=== PATIENT | female | born 1955 | race American Indian/Alaskan Native ===

== ENCOUNTER 2017-04-15 13:41 | Outpatient (CLI) | payer BC ==
--- NOTE | 2017-04-15 14:56 | XRay Report ---
LEFT SHOULDER RADIOGRAPHS INDICATION: Left shoulder pain. COMPARISON: None similar. FINDINGS: Frontal and Y views of the left shoulder, 3 projections demonstrate normal humeral head contour, well positioned against the glenoid. Normal acromioclavicular joint. Preserved scapular contour. Normal visualized soft tissues, left ribs and lung. CONCLUSION: No acute left shoulder radiographic abnormality, as described. Thank you for the opportunity to participate in this patient's care.
== END 2017-04-15 13:42 | disposition home or self-care (01) ==
LOC: XRAY 13:41
PROVIDERS: ATTEND Internal Medicine
DX: M25.512 Pain in left shoulder (principal); I10 Essential (primary) hypertension; Z87.891 Personal history of nicotine dependence

== ENCOUNTER 2017-09-25 13:34 | Emergency (ER) | payer BC ==
[2017-09-25 14:04] VITALS: BP 169/78
[2017-09-25] MEDS ORDERED: MOTRIN PO ONE (14:36)
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
== END 2017-09-25 15:24 | disposition home or self-care (01) ==
LOC: ED 13:34
DX: S46.911A Strain of unspecified muscle, fascia and tendon at shoulder and upper arm level, right arm, initial encounter (principal); I10 Essential (primary) hypertension; Z87.891 Personal history of nicotine dependence; Z90.710 Acquired absence of both cervix and uterus; Z88.5 Allergy status to narcotic agent; Z91.09 Other allergy status, other than to drugs and biological substances; W23.0XXA Caught, crushed, jammed, or pinched between moving objects, initial encounter; Y93.89 Activity, other specified; Y99.8 Other external cause status; Y92.89 Other specified places as the place of occurrence of the external cause
CPT/HCPCS: 99282

== ENCOUNTER 2017-11-07 07:54 | Outpatient (CLI) | payer BC ==
--- NOTE | 2017-11-08 07:59 | Magnetic Resonance Report ---
MR UPPER EXTREMITY RIGHT WITHOUT CONTRAST HISTORY: Right shoulder pain. TECHNIQUE: Multisequence, multiplanar MR without contrast. COMPARISON: No relevant comparison at this facility. FINDINGS: The distal supraspinatus and infraspinatus tendons are thickened with increased intrinsic signal. A greater than 50% thickness articular surface tear is suspected in the distal supraspinatus tendon at the level of the acromion. There is likely a pinhole full-thickness component to this tear as well. Partial tear along the bursal surface of the distal infraspinatus tendon at its attachment site on the proximal humerus is suspected and estimated at 50% thickness. The subscapularis tendon, teres minor tendon and long head of the biceps tendon are within normal limits. No gross labral defect although arthrogram was not performed. Minimal osteoarthritic changes are identified. A 5 mm degenerative subchondral cyst is noted in the lateral humeral head. No evidence for fracture, dislocation, or ligamentous injury or bone lesion. Small joint effusion and small fluid in the subacromial/subdeltoid bursa are noted. IMPRESSION: Abnormal distal supraspinatus and infraspinatus tendons as outlined above. Small joint effusion and bursal fluid. Minor osteoarthritic changes which appear appropriate for this persons age.
== END 2017-11-07 07:55 | disposition home or self-care (01) ==
LOC: MRI 07:54
PROVIDERS: ATTEND Orthopaedic Surgery
DX: M19.011 Primary osteoarthritis, right shoulder (principal); M25.811 Other specified joint disorders, right shoulder

== ENCOUNTER 2017-11-27 08:24 | Outpatient (CLI) | payer BC ==
--- NOTE | 2017-11-28 08:08 | Magnetic Resonance Report ---
MRI LEFT SHOULDER WITHOUT CONTRAST: 11/27/17 CLINICAL: Left shoulder pain. TECHNIQUE: Coronal T1, coronal T2, coronal proton density fat saturation, sagittal proton density fat saturation and axial gradient echo T* sequences on a 1.5 [employer] magnet. FINDINGS: Type I acromion. Moderate acromioclavicular joint arthritis with subacromial impingement of the supraspinatus tendon. High-grade partial-thickness tear of the distal supraspinatus tendon with thinning of the undersurface as well as the bursal surface. Subacromial and subdeltoid fluid. Small joint effusion. The rest of the rotator cuff is intact. Fluid in the biceps tendon sheath with an empty upper bicipital groove. The glenoid labrum appears intact. No bone contusion or fracture. No muscle atrophy or abnormal muscle signal. IMPRESSION: 1. High-grade partial-thickness tears of the distal supraspinatus tendon. 2. Torn biceps tendon with retraction of the tendon and fluid in the biceps tendon sheath. 3. Acromioclavicular joint arthritis with subacromial impingement.
--- NOTE | 2017-11-28 09:23 | Magnetic Resonance Report ---
MR LOWER EXTREMITY JOINT RIGHT WITHOUT CONTRAST HISTORY: Right knee pain. TECHNIQUE: Multisequence, multiplanar MRI with and without fat suppression. No IV gadolinium. COMPARISON: None at this facility. FINDINGS: There is a 2.3 x 1.8 x 2.0 cm bone lesion in the distal femoral metaphysis. This has a well defined margin and no surrounding edema. This lesion appears to follow cartilage signal on all sequences. This is highly consistent with an incidental enchondroma. The remaining bone marrow signal is within normal limits. No evidence for suspicious bone lesion, fracture or bone marrow edema. There is mild thickening and increased signal in the proximal portions of the medial collateral ligament. There is a small amount of edema seen on both sides of the ligament. This suggests a grade 1 strain. No detachment or large full thickness defect is identified. The ACL, PCL, LCL complex and extensor complex are intact. Mild myxoid degeneration of both menisci is identified. The lateral meniscus appears intact. There is suggestion of a horizontal cleavage tear in the body of the medial meniscus. The coronal proton density fat sat images 11 and 12 suggests there may be a medial flipped meniscus near the body of the medial meniscus as well. No findings to suggest meniscocapsular separation. There is moderate diffuse cartilage thinning throughout the knee. Mild marginal spurring in the medial compartment is noted. Tiny 3 mm subchondral cyst is noted in the medial tibial plateau. No evidence for osteochondral defect or large full thickness cartilage defect. There is a moderate joint effusion which extends to the suprapatellar bursa. No popliteal cyst. IMPRESSION: Mild to moderate osteoarthritis. Medial meniscal tear as outlined above. There may be a medial flipped meniscus. Grade 1 MCL strain. Joint effusion. Incidental enchondroma in the distal femoral metaphysis.
== END 2017-11-27 08:25 | disposition home or self-care (01) ==
LOC: MRI 08:24
PROVIDERS: ATTEND Orthopaedic Surgery
DX: D16.21 Benign neoplasm of long bones of right lower limb (principal); S83.411A Sprain of medial collateral ligament of right knee, initial encounter; S83.241A Other tear of medial meniscus, current injury, right knee, initial encounter; S46.212A Strain of muscle, fascia and tendon of other parts of biceps, left arm, initial encounter; M75.102 Unspecified rotator cuff tear or rupture of left shoulder, not specified as traumatic; M19.012 Primary osteoarthritis, left shoulder; M17.11 Unilateral primary osteoarthritis, right knee; M25.812 Other specified joint disorders, left shoulder; M25.861 Other specified joint disorders, right knee; X58.XXXA Exposure to other specified factors, initial encounter; Y93.89 Activity, other specified; Y92.89 Other specified places as the place of occurrence of the external cause; Y99.8 Other external cause status
CPT/HCPCS: 73721

== ENCOUNTER 2017-12-19 19:59 | Emergency (ER) | payer BC ==
[2017-12-19 20:23] VITALS: BP 163/68
--- NOTE | 2017-12-19 20:55 | Emergency Department Report ---
ED Eye Problem HPI - General Chief complaint: Eye Problems Stated complaint: LEFT EYE LIGHT FLASH Time Seen by Provider: 12/19/17 20:31 Source: patient Mode of arrival: Ambulatory Limitations: No Limitations - History of Present Illness Initial comments: Mrs. Slade is a 62 yo female with hx of HTN who presents with visual disturbance. She woke up this morning with mild posterior headache which spontaneously resolved. Subsequently, she developed constant flash of light in the left superior temporal region of her left eye. No involvement of right eye. For the last 3-4 hours, she has noted dark floaters from the lateral/ temporal aspect of left eye. Normal eye exam several months prior. No hx of DM. chief complaint: vision change -: Gradual Onset Description: gradual Location: left eye Place: home, work If Injury: none Eye Symptoms: decreased vision Severity: moderate Consistency: constant Associated Symptoms: headache - Related Data Previous Rx's Medication Instructions Recorded Last Taken Type hydrALAZINE [Apresoline TAB] 25 mg PO Q8HR #90 tablet 11/20/14 07/04/15 Rx Meclizine [Antivert] 25 mg PO TID PRN #30 tablet 07/04/15 Unknown Rx Acetaminophen/Codeine [Tylenol #3] 1 tab PO Q6H PRN #12 tab 08/16/16 Unknown Rx Cephalexin [Keflex] 500 mg PO 4XD #40 capsule 08/16/16 Unknown Rx Sulfamethoxazole/Trimethoprim 1 each PO BID #20 tablet 08/16/16 Unknown Rx [Bactrim DS TAB] Cyclobenzaprine [Flexeril] 10 mg PO QHS PRN #20 tablet 09/25/17 Unknown Rx Ibuprofen [Motrin] 800 mg PO Q8HR PRN #30 tablet 09/25/17 Unknown Rx Allergies Allergy/AdvReac Type Severity Reaction Status Date / Time oxycodone Allergy Itching Verified 11/19/14 13:32 BAND-AID Allergy Rash Uncoded 08/24/16 07:10 ED Review of Systems ROS: Stated complaint: LEFT EYE LIGHT FLASH Other details as noted in HPI Comment: All other systems reviewed and negative Constitutional: denies: chills Respiratory: denies: cough Cardiovascular: denies: chest pain ED Past Medical Hx - Past Medical History Hx Hypertension: Yes Hx Arthritis: Yes - Surgical History Additional Surgical History: partial hysterectomy, miniscus surgery - Social History Smoking Status: Never Smoker Substance Use Type: None - Medications Home Medications: Home Medications Medication Instructions Recorded Confirmed Last Taken Type hydrALAZINE [Apresoline TAB] 25 mg PO Q8HR #90 tablet 11/20/14 07/04/15 Rx Meclizine [Antivert] 25 mg PO TID PRN #30 tablet 07/04/15 Unknown Rx Acetaminophen/Codeine [Tylenol #3] 1 tab PO Q6H PRN #12 tab 08/16/16 Unknown Rx Cephalexin [Keflex] 500 mg PO 4XD #40 capsule 08/16/16 Unknown Rx Sulfamethoxazole/Trimethoprim 1 each PO BID #20 tablet 08/16/16 Unknown Rx [Bactrim DS TAB] Cyclobenzaprine [Flexeril] 10 mg PO QHS PRN #20 tablet 09/25/17 Unknown Rx Ibuprofen [Motrin] 800 mg PO Q8HR PRN #30 tablet 09/25/17 Unknown Rx ED Physical Exam - General Limitations: No Limitations General appearance: alert, in no apparent distress - Head Head exam: Present: atraumatic, normocephalic - Eye Eye exam: Present: normal appearance, PERRL, EOMI, conjunctival injection. Absent: scleral icterus, nystagmus Pupils: Present: normal accommodation, other (normal swinging flashlight test) - ENT ENT exam: Present: mucous membranes moist - Neck Neck exam: Present: normal inspection. Absent: tenderness, meningismus - Respiratory Respiratory exam: Present: normal lung sounds bilaterally. Absent: respiratory distress, wheezes, rales, rhonchi - Cardiovascular Cardiovascular Exam: Present: regular rate, normal rhythm, normal heart sounds. Absent: systolic murmur, diastolic murmur, rubs, gallop - GI/Abdominal GI/Abdominal exam: Present: soft, normal bowel sounds. Absent: distended, tenderness, guarding, rebound - Extremities Exam Extremities exam: Present: normal inspection. Absent: tenderness - Back Exam Back exam: Present: normal inspection - Neurological Exam Neurological exam: Present: alert, oriented X3, normal gait, motor sensory deficit - Psychiatric Psychiatric exam: Present: normal affect, normal mood - Skin Skin exam: Present: warm, dry, intact, normal color. Absent: rash ED Course Vital Signs 12/19/17 20:20 Temperature 98.6 F Pulse Rate 90 Respiratory 16 Rate Blood Pressure 163/68 O2 Sat by Pulse 98 Oximetry ED Medical Decision Making - Medical Decision Making at 2044 I spoke with [facility] transfer center. I am concerned for PVD or retinal detachment. Corrected vision 20/13 with glasses without glasses 20/[address] Roper baton twirler accepted the patient to ER for evaluation. Transferred by ambulance in stable condition. Critical care attestation.: If time is entered above; I have spent that time in minutes in the direct care of this critically ill patient, excluding procedure time. ED Disposition Clinical Impression: Visual disturbance of one eye Disposition: [id number]/TX-[id number] ANOTHER TYPE HLTHCARE Is pt being admited?: No Does the pt Need Aspirin: No Condition: Stable Time of Disposition: 21:18
== END 2017-12-19 23:30 | disposition other institution (70) ==
LOC: ED 19:59 → EEVIPCON 19:59 → ED 23:30
DX: H57.8 Other specified disorders of eye and adnexa (principal); I10 Essential (primary) hypertension; M19.90 Unspecified osteoarthritis, unspecified site; Z88.6 Allergy status to analgesic agent; Z91.048 Other nonmedicinal substance allergy status
CPT/HCPCS: 99284

== ENCOUNTER 2018-01-10 09:59 | Outpatient (CLI) | payer BC ==
[2018-01-10 10:21] LABS: Bilirubin,Urine NEG (Negative); Blood,Urine NEG (Negative); Color,Urine Yellow (Yellow); Mucus,Urine FEW /HPF; Protein,Urine <15 mg/dL mg/dL (Negative); Urobilinogen,Urine < 2.0 mg/dL (<2.0)
[2018-01-10 10:22] LABS: Basophils % (Auto) 0.6 % (0.0-1.8); Eosinophils # (Auto) 0.1 K/mm3 (0.0-0.4); Eosinophils % (Auto) 1.7 % (0.0-4.3); Hemoglobin 13.1 gm/dl (10.1-14.3); Lymphocytes # (Auto) 1.9 K/mm3 (1.2-5.4); Lymphocytes % (Auto) 32.8 % (13.4-35.0); Mean Corpuscular HGB Conc 34 % (30-34); Mean Corpuscular Hemoglobin 29 pg (28-32); Mean Corpuscular Volume 88 fl (79-97); Monocytes # (Auto) 0.4 K/mm3 (0.0-0.8); Platelet Count 278 K/mm3 (140-440); Red Blood Count 4.45 M/mm3 (3.65-5.03); Red Cell Distribution Width 15.7 % (13.2-15.2)
[2018-01-10 10:38] LABS: Alanine Aminotransferase 12 units/L (7-56); Albumin 4.3 g/dL (3.9-5); BUN/Creatinine Ratio 22; Blood Urea Nitrogen 13 mg/dL (7-17); Calcium 9.8 mg/dL (8.4-10.2); Hemolysis Index 3
== END 2018-01-10 10:00 | disposition home or self-care (01) ==
LOC: LAB 09:59
PROVIDERS: ATTEND Internal Medicine
DX: Z01.818 Encounter for other preprocedural examination (principal)
CPT/HCPCS: 36415; 80053; 81001; 85025; 87086

== ENCOUNTER 2018-04-23 07:22 | Day surgery (SDC) | payer BC ==
[~2018-04-23 07:22] MED LIST: ANCEF/STERILE WATER 2 GM/20 ML IV NR; MARCAINE-EPI 0.25%-1:200,000 INFILTRATI ONE
[2018-04-23] MEDS ORDERED: VERSED IV NR (08:00)
[2018-04-23] MEDS ORDERED: NEURONTIN PO NR (08:00)
[2018-04-23] MEDS ORDERED: LACTATED RINGERS 1,000 ML IV SCH ×2 (08:00→10:00)
[2018-04-23] MEDS ORDERED: CLONIDINE 1,000 MCG/10 ML VIAL EP ONE (08:09)
[2018-04-23] MEDS ORDERED: MARCAINE 0.5% 30 ML INFILTRATI ONE (08:09)
[2018-04-23] MEDS ORDERED: XYLOCAINE 1% 20 mL ONE (08:09)
[2018-04-23] MEDS ORDERED: DECADRON ONE ×2 (08:10→11:25)
[2018-04-23] MEDS ORDERED: NACL BACTERIOSTATIC INFILTRATI ONE (08:19)
[2018-04-23] MEDS ORDERED: MARCAINE-EPI 0.25%-1:200,000 INFILTRATI ONE ×2 (08:25→11:25)
[2018-04-23] MEDS ORDERED: ADRENALIN IV ONE ×2 (08:25→10:54)
[2018-04-23] MEDS ORDERED: DILAUDID IV PRN (09:00)
[2018-04-23] MEDS ORDERED: ZOFRAN IV PRN (09:00)
[2018-04-23] MEDS ORDERED: SUBLIMAZE ONE ×2 (09:21→09:31)
[2018-04-23] MEDS ORDERED: DIPRIVAN 10 MG/ML IV ONE (09:21)
[2018-04-23] MEDS ORDERED: ZOFRAN ONE (09:22)
[2018-04-23] MEDS ORDERED: ZEMURON IV ONE (09:22)
[2018-04-23] MEDS ORDERED: XYLOCAINE MPF 2% ONE (09:22)
[2018-04-23] MEDS ORDERED: TRANSDERM-SCOP TD ONE (09:53)
[2018-04-23] MEDS ORDERED: PEPCID IV ONE (09:54)
--- NOTE | 2018-04-23 10:09 | Anesthesia Consultation ---
Anesthesia Consult and Med Hx - Airway Anesthetic Teeth Evaluation: Crowns, Partials ROM Head & Neck: Adequate Mental/Hyoid Distance: Adequate Mallampati Class: Class II Intubation Access Assessment: Probably Good - Pre-Operative Health Status ASA Pre-Surgery Classification: ASA2 Proposed Anesthetic Plan: General - Pulmonary Hx Smoking: No Hx Sleep Apnea: No (CHANI PRE SCREEN LOW RISK) - Cardiovascular System Hx Hypertension: Yes (X 3 YRS) - Other Systems Hx Cancer: No
--- NOTE | 2018-04-23 10:09 | Anesthesia Day of Surgery ---
Anesthesia Day of Surgery - Day of Surgery Patient Examined: Yes Patient H&P Reviewed: Yes Patient is NPO: Yes
[2018-04-23] MEDS ORDERED: QUELICIN ONE (10:30)
[2018-04-23] MEDS ORDERED: NACL P/F VIAL (10 ML) 10 ML ONE ×2 (10:33)
[2018-04-23] MEDS ORDERED: NEO SYNEPHRINE ONE (10:33)
[2018-04-23] MEDS ORDERED: ePHEDrine 50 MG/5 ML-0.9% NACL IV ONE (10:45)
[2018-04-23] MEDS ORDERED: LACTATED RINGERS 1,000 ML ONE (11:10)
[2018-04-23] MEDS ORDERED: NORCO 5/325 PO PRN (13:01)
--- NOTE | 2018-04-23 13:29 | Operative Report ---
PREOPERATIVE DIAGNOSIS: Left shoulder with rotator cuff tear, subacromial impingement bursitis. POSTOPERATIVE DIAGNOSES: 1. Left shoulder with marked subacromial impingement bursitis. 2. Glenohumeral arthritis. 3. Partial thickness rotator cuff tear. PROCEDURE PERFORMED: 1. Left shoulder arthroscopy with arthroscopic subacromial bursectomy and decompression. 2. Arthroscopic debridement, partial thickness cuff tear and labral fraying. SURGEON: Keith Lamb MD. TRANSPORTATION MAINTENANCE OPERATOR: Jose Corrales CSA. ANESTHESIA: General plus scalene block. ESTIMATED BLOOD LOSS: Minimal. COMPLICATIONS: None. The patient underwent successful induction of anesthesia. FINDINGS: He was carefully positioned in beach chair, was prepped and draped in usual fashion. Antibiotics were preadministered. Arthroscopy was carried out utilizing standard posterior portal entry made through the triangular space under direct vision. Systematic examination of the joint was carried out. This demonstrated the findings noted. The articular surface demonstrated well preserved articular surface on the glenoid; however, the humeral head, grade 3 chondromalacia was noted with a focal unstable flaps gently debrided with a shaver. The labrum demonstrated mild fraying, which was debrided. The rotator cuff demonstrated intact subscapularis, infraspinatus, supraspinatus demonstrated partial thickness tearing at approximately 20%, gently debrided on the undersurface. However, the cuff was noted to be attenuated. The biceps was completely intact with its insertion on the glenoid and into the groove. At this point in time, the arthroscope was placed in the subacromial space. The posterior portal noted to have marked subacromial bursitis. Through a straight lateral portal decompression with type 3 acromion was carried out with excellent flush surface achieved. The outer surface cuff demonstrated marked subacromial bursitis, which was gently debrided. The area in the rotator cuff supraspinatus junction did demonstrate attenuation, but no significant tearing on the outer surface primarily ____. It was not felt to require any further treatment or repair. Excellent decompression was achieved. The arthroscopic instruments were removed, ports were closed with nylon sutures. Steri-Strips were applied. He was taken to the recovery room in satisfactory condition having tolerated the procedure well. JOB# [id number] RDP/NTS
--- NOTE | 2018-04-23 13:56 | Post Anesthesia Evaluation ---
- Post Anesthesia Evaluation Patient Participated: Yes Airway Patent: Yes Stable Respiratory Function: Yes Nausea/Vomiting: No Temp > 96.8F: Yes Pain Manageable: Yes Adequeate Hydration: Yes Anesthesia Complications: No
[2018-04-23 16:21] VITALS: BP 130/61
== END 2018-04-23 15:28 | disposition home or self-care (01) ==
LOC: OR 07:22
PROVIDERS: ATTEND Orthopaedic Surgery
DX: S46.012A Strain of muscle(s) and tendon(s) of the rotator cuff of left shoulder, initial encounter (principal); M75.42 Impingement syndrome of left shoulder; M75.52 Bursitis of left shoulder; M19.012 Primary osteoarthritis, left shoulder; I10 Essential (primary) hypertension; X58.XXXA Exposure to other specified factors, initial encounter; Y93.89 Activity, other specified; Y92.89 Other specified places as the place of occurrence of the external cause; Y99.8 Other external cause status; Z88.5 Allergy status to narcotic agent; Z91.048 Other nonmedicinal substance allergy status
CPT/HCPCS: 29826; 29827; J0171; J0330; J0690; J0735; J1100; J2250; J2370; J2405; J2704; J3010; J7120